=== PATIENT | female | born 1995 | race Caucasian/White ===

== ENCOUNTER 2017-02-18 18:17 | Emergency (ER) | payer OTHER ==
[~2017-02-18] VITALS: Ht 165.1 cm; Wt 86.2 kg
[~2017-02-18 18:17] MED LIST: AVPAK AZITHROM250 M1 PO; CLARITIN10 MG PO; FLONASE ALLERG9.9 ML NAS; FLOVENT 110 M110 MCG PO; MEDROL DOSEPAK4 MG PO; MONO-LINYAH 281 EACH PO; MOTRIN800 MG PO; NAPROSYN500 MG PO; NORCO 325 MG-51 TAB PO; PEN-VK500 MG PO; PREDNISONE10 MG PO; PREVIFEM 35 MCG1 TA1 PO; ROBITUSSIN AC 110 ML PO; SERTRALINE HYDR50 MG PO; TESSALON PERLE200 MG PO; VENTOLIN H0.09 MG/AC INH; VENTOLIN H0.09 MG/AC PO; ZITHROMAX Z PA250 MG PO
[2017-02-18] MEDS ORDERED: Motrin,Rufen800 MG PO (19:05)
[2017-02-18 19:10] VITALS: BP 94/36
== END 2017-02-18 19:50 | disposition home or self-care (01) ==
LOC: ED 18:17
DX: S83.015A Lateral dislocation of left patella, initial encounter (principal); Z79.899 Other long term (current) drug therapy; X58.XXXA Exposure to other specified factors, initial encounter; Y93.01 Activity, walking, marching and hiking; Y92.89 Other specified places as the place of occurrence of the external cause; Y99.8 Other external cause status

== ENCOUNTER → 2017-03-30 | Outpatient (CLI) | payer OTHER ==
[~2017-03-30] MED LIST changes: +Motrin,Rufen800 MG PO
== END | disposition home or self-care (01) ==
LOC: MRI 12:49
DX: S83.92XA Sprain of unspecified site of left knee, initial encounter (principal); X58.XXXA Exposure to other specified factors, initial encounter; Y93.89 Activity, other specified; Y92.89 Other specified places as the place of occurrence of the external cause; Y99.8 Other external cause status

== ENCOUNTER 2017-08-30 14:55 | Emergency (ER) | payer OTHER ==
[~2017-08-30] VITALS: Ht 162.5 cm; Wt 88.5 kg
[2017-08-30 14:57] VITALS: BP 121/86
[2017-08-30] MEDS ORDERED: VIBRAMYCIN100 MG PO (15:20)
== END 2017-08-30 16:35 | disposition home or self-care (01) ==
LOC: ED 14:55
PROVIDERS: Physician Assistant
DX: A26.0 Cutaneous erysipeloid (principal); A69.20 Lyme disease, unspecified; Z79.899 Other long term (current) drug therapy

== ENCOUNTER 2018-02-12 | Emergency (ER) | payer OTHER ==
[~2018-02-12] MED LIST changes: +PROAIR HFA8.5 GM INH; +VIBRAMYCIN100 MG PO; +VISTARIL25 MG PO
[2018-02-12] MEDS ORDERED: TESSALON PERLE100 M1 PO (17:01)
[2018-02-12] MEDS ORDERED: AMOXICILLIN500 M2 PO (17:01)
[2018-02-12] MEDS ORDERED: FLONASE ALLERG9.9 ML NAS (17:01)
[2018-07-05] MEDS ORDERED: MEDROL DOSEPAK4 MG PO (16:22)
[2018-07-05] MEDS ORDERED: ZITHROMAX250 MG PO (16:22)
== END 2018-02-12 17:15 | disposition home or self-care (01) ==
DX: J01.90 Acute sinusitis, unspecified (principal); Z79.899 Other long term (current) drug therapy

== ENCOUNTER → 2018-06-27 | Outpatient (CLI) | payer OTHER ==
[~2018-06-27] MED LIST changes: +AMOXICILLIN500 M2 PO; +AUGMENTIN 875-875 MG PO; +ESCITALOPRAM OX20 MG PO; +PROVENTIL HFA6.7 GM INH; +TESSALON PERLE100 M1 PO; +ZITHROMAX250 MG PO
== END | disposition home or self-care (01) ==
LOC: MRI 10:59
DX: S83.015D Lateral dislocation of left patella, subsequent encounter (principal); X58.XXXD Exposure to other specified factors, subsequent encounter

== ENCOUNTER 2018-10-11 15:02 | Emergency (ER) | payer OTHER ==
[~2018-10-11] VITALS: Ht 162.5 cm; Wt 97.5 kg
[~2018-10-11 15:02] MED LIST changes: -AUGMENTIN 875-875 MG PO; -ESCITALOPRAM OX20 MG PO; -PROVENTIL HFA6.7 GM INH
[2018-10-11 15:04] VITALS: BP 133/73
[2018-10-11] MEDS ORDERED: PROVENTIL HFA6.7 GM INH (16:24)
[2018-10-11] MEDS ORDERED: AUGMENTIN 875-875 MG PO (16:24)
== END 2018-10-11 16:30 | disposition home or self-care (01) ==
LOC: ED 15:02
DX: J01.90 Acute sinusitis, unspecified (principal)

== ENCOUNTER 2018-10-13 05:40 | Emergency (ER) | payer OTHER ==
[~2018-10-13] VITALS: Ht 162.5 cm; Wt 97.5 kg
[~2018-10-13 05:40] MED LIST changes: +AUGMENTIN 875-875 MG PO; +PROVENTIL HFA6.7 GM INH
[2018-10-13] MEDS ORDERED: ESCITALOPRAM OX20 MG PO (05:47)
[2018-10-13] MEDS ORDERED: MONO-LINYAH 281 EACH PO (05:47)
[2018-10-13 05:48] VITALS: BP 146/77
[2018-10-13] MEDS ORDERED: PREDNISONE10 MG PO (06:02)
== END 2018-10-13 06:51 | disposition home or self-care (01) ==
LOC: ED 05:40
DX: J45.901 Unspecified asthma with (acute) exacerbation (principal); J32.9 Chronic sinusitis, unspecified; Z79.899 Other long term (current) drug therapy

== ENCOUNTER 2023-06-12 09:12 | Emergency (ER) | payer OTHER ==
[~2023-06-12] VITALS: Ht 162.5 cm; Wt 79.6 kg
[~2023-06-12 09:12] MED LIST changes: +ESCITALOPRAM OX20 MG PO
[2023-06-12 09:27] VITALS: BP 123/87
[2023-06-12] MEDS ORDERED: BUPROPION HYDR150 M3 PO (09:29)
[2023-06-12] MEDS ORDERED: LAMOTRIGINE25 M1 PO (09:30)
[2023-06-12] MEDS ORDERED: BUSPIRONE HCL10 MG PO (09:30)
[2023-06-12] MEDS ORDERED: Ondansetron Hydrochloride 4 MG/2 ML VIAL IV ONE (09:35)
[2023-06-12] MEDS ORDERED: SODIUM CHLORIDE 0.9% 1,000 ML IV ONE (09:35)
[2023-06-12 09:51] LABS: BASO % 0.3 % (0.0-1.0); EOS % 0.4 % (1.0-4.0); HEMATOCRIT 48.8 % (37.0-47.0); LYMPH # 1.2 10*3/uL (1.3-4.4); LYMPH % 14.9 % (27.0-41.0); MEAN CELL VOLUME 87.9 fl (81.0-99.0); MEAN CORPUSCULAR HGB 28.6 pg (27.0-31.0); MEAN CORPUSCULAR HGB CONC 32.6 g/dl (33.0-37.0); MEAN PLATELET VOLUME 10.9 fl (9.6-12.3); MONO # 0.7 10*3/uL (0.1-1.0); MONO % 9.1 % (3.0-9.0); NEUT # 5.8 10*3/uL (2.3-7.9); PLATELET COUNT AUTOMATED 261 10*3/uL (130-400); RED BLOOD COUNT 5.55 10*6/uL (4.10-5.10); RED CELL DISTRI WIDTH 13.2 % (0-14.5); WHITE BLOOD COUNT 7.8 10*3/uL (4.8-10.8)
[2023-06-12 10:16] LABS: ALKALINE PHOSPHATASE 65 U/L (46-116); BUN 15 mg/dl (9-23); CHLORIDE 100 mmol/L (98-107); ETHYL ALCOHOL < 3.0 mg/dl (<3); LIPASE 35 U/L (12-53); POTASSIUM 3.6 mmol/L (3.4-5.1); SGPT/ALT 25 U/L (5-49); TOTAL PROTEIN 7.6 gm/dL (6.0-8.0)
[2023-06-12 10:27] LABS: BILIRUBIN Negative (Negative); BLOOD Negative (Negative); CLARITY Clear (Clear); COLOR Dark Yellow (Yellow); GLUCOSE Negative (Negative); KETONE 3+ (Negative); LEUKO ESTERASE Negative (Negative); NITRITE Negative (Negative); SPECIFIC GRAVITY >= 1.030 (1.001-1.030)
[2023-06-12 10:36] LABS: URINE AMPHETAMINES Negative (1000ng/ml); URINE BARBITURATES Negative (200ng/ml); URINE BENZODIAZEPINES Negative (200ng/ml); URINE CANNABINOIDS (THC) Positive (50ng/ml); URINE COCAINE Negative (300ng/ml); URINE METHADONE Negative (300ng/ml); URINE OPIATES Negative (300ng/ml); URINE PHENCYCLIDINE Negative (25ng/ml)
[2023-06-12 10:43] LABS: MUCOUS 1+; WBC 0-2 wbc/hpf (0-5)
[2023-06-12 10:44] LABS: BACTERIA 2+
[2023-06-12] MEDS ORDERED: ONDANSETRON4 MG SL (10:48)
[2023-06-12] MEDS ORDERED: CIPRO500 MG PO (10:48)
== END 2023-06-12 11:06 | disposition home or self-care (01) ==
LOC: ED 09:12
PROVIDERS: Internal Medicine
DX: N39.0 Urinary tract infection, site not specified (principal); R11.2 Nausea with vomiting, unspecified; R19.7 Diarrhea, unspecified; J45.909 Unspecified asthma, uncomplicated; Z98.890 Other specified postprocedural states

== ENCOUNTER → 2023-10-18 | Outpatient (CLI) | payer OTHER ==
[~2023-10-18] MED LIST changes: +BUPROPION HYDR150 M3 PO; +BUSPIRONE HCL10 MG PO; +CIPRO500 MG PO; +LAMOTRIGINE25 M1 PO; +ONDANSETRON4 MG SL
== END | disposition home or self-care (01) ==
LOC: US 10:15
PROVIDERS: ATTEND Nurse Practitioner Women's Health
DX: Z34.01 Encounter for supervision of normal first pregnancy, first trimester (principal); Z3A.00 Weeks of gestation of pregnancy not specified

== ENCOUNTER → 2024-04-26 | Outpatient (CLI) | payer OTHER ==
[2024-04-26 10:03] LABS: BILIRUBIN Negative (Negative); BLOOD Negative (Negative); CLARITY Cloudy (Clear); COLOR Yellow (Yellow); GLUCOSE Negative (Negative); KETONE Trace (Negative); LEUKO ESTERASE 3+ (Negative); NITRITE Negative (Negative); PH 6.5 (4.5-8.0); UROBILINOGEN 0.2 E.U./dl (0.0-1.0)
[2024-04-26 10:04] LABS: BASO % 0.2 % (0.0-1.0); EOS # 0.1 10*3/uL (0.0-0.4); EOS % 0.8 % (1.0-4.0); HEMATOCRIT 46.2 % (37.0-47.0); MEAN CORPUSCULAR HGB 29.1 pg (27.0-31.0); MEAN CORPUSCULAR HGB CONC 32.7 g/dl (33.0-37.0); MONO # 0.6 10*3/uL (0.1-1.0); MONO % 6.5 % (3.0-9.0); NEUT # 7.5 10*3/uL (2.3-7.9); NEUT % 76.5 % (47.0-73.0); PLATELET COUNT AUTOMATED 224 10*3/uL (130-400); RED BLOOD COUNT 5.19 10*6/uL (4.10-5.10); WHITE BLOOD COUNT 9.9 10*3/uL (4.8-10.8)
[2024-04-26 10:13] LABS: BACTERIA 4+; EPITHELIAL CELLS 21-30; WBC TNTC wbc/hpf (0-5)
[2024-04-26 10:34] LABS: ALKALINE PHOSPHATASE 88 U/L (46-116); BUN 6 mg/dl (9-23); CHLORIDE 101 mmol/L (98-107); FREE T4 1.18 ng/dl (0.89-1.76); LDH 160 U/L (120-246); POTASSIUM 3.7 mmol/L (3.4-5.1); SGPT/ALT 12 U/L (5-49); TOTAL PROTEIN 6.6 gm/dL (6.0-8.0); URIC ACID 3.7 mg/dL (3.1-7.8)
[2024-04-26 10:49] LABS: VITAMIN D, 25-HYDROXY 31.5 ng/mL (30-100)
[2024-04-27 06:05] LABS: CYTOMEGALOVIRUS AB, IGG <0.60 U/mL (0.00-0.59)
== END | disposition home or self-care (01) ==
LOC: LAB 00:07
PROVIDERS: Obstetrics & Gynecology; ATTEND Nurse Practitioner Family
DX: O09.893 Supervision of other high risk pregnancies, third trimester (principal); F41.9 Anxiety disorder, unspecified; F32.A Depression, unspecified; J45.20 Mild intermittent asthma, uncomplicated; Z57.9 Occupational exposure to unspecified risk factor; R80.9 Proteinuria, unspecified; Z3A.33 33 weeks gestation of pregnancy